=== PATIENT | male | born 1990 | race Caucasian/White ===

== ENCOUNTER 2017-10-12 01:28 | Emergency (ER) | payer SELFPAY ==
[~2017-10-12 01:28] MED LIST: NO ROUTINE MEDS; RAN150 PO
[2017-10-12 01:30] VITALS: BP 163/98
--- NOTE | 2017-10-12 01:30 | ER Report ---
History and Physical Time Seen By MD: 01:30 HPI/ROS CHIEF COMPLAINT: Custodial clearance HISTORY OF PRESENT ILLNESS: 27-year-old male brought in by police for group home clearance. Patient voices no complaints. He has slurred and appears grossly intoxicated. Patient states no significant past medical history. REVIEW OF SYSTEMS: Respiratory: No cough, no dyspnea. Cardiovascular: No chest pain, no palpitations. Gastrointestinal: No vomiting, no abdominal pain. Musculoskeletal: No back pain. Allergies: Coded Allergies: No Known Drug Allergies (Verified , 10/12/17) Home Meds Discontinued Reported Medications Ranitidine Hcl (Zantac) 150 Mg Tab, 150 MG PO BID, #60 0 Refills 11/29/09 [No Routine Meds] No Conflict Check, 0 Refills 11/28/09 Reviewed Nurses Notes: Yes Old Medical Records Reviewed: Yes Hx Substance Use Disorder: No Hx Alcohol Use: No Constitutional Vital Sign - Last 24 Hours 10/12/17 01:30 Temp 97.8 Pulse 124 Resp 17 B/P (MAP) 163/98 Pulse Ox 93 O2 Delivery Room Air Physical Exam General Appearance: The patient is alert, has no immediate need for airway protection and no current signs of toxicity. Vital signs stable, mild tachycardia, afebrile, pulse ox normal HEENT: Pupils equal and round no injection. Oropharynx without dental trauma Respiratory: Chest is non tender, lungs are clear to auscultation. No chest wall tenderness Cardiac: regular rate and rhythm Gastrointestinal: Abdomen is soft and non tender, no masses, bowel sounds normal. Musculoskeletal: Neck: Neck is supple and non tender. Extremities have full range of motion and are non tender. Skin: No rashes or lesions. DIFFERENTIAL DIAGNOSIS: After history and physical exam differential diagnosis was considered for group home clearance, polysubstance abuse, alcohol intoxication Medical Decision Making ED Course/Re-evaluation ED Course Patient was admitted to an examination room. H&P was done. The differential diagnoses was considered. On clinical examination. Patient voices no complaints. His exam is unremarkable. His vital signs are stable except for mild tachycardia for being arrested. Patient's medical cleared for group home admission. Decision to Disposition Date: Oct 12, 2017 Decision to Disposition Time: 01:40 Depart Departure Latest Vital Signs Vital Signs Date Time Temp Pulse Resp B/P (MAP) Pulse Ox O2 Delivery O2 Flow Rate FiO2 10/12/17 01:30 97.8 124 17 163/98 93 Room Air Impression: Primary Impression: Medical clearance for incarceration Additional Impression: Alcohol intoxication Condition: Improved Disposition: [facility] TO HALFWAY/CORRECTIONAL F New Scripts No Active Prescriptions or Reported Meds Patient Instructions: Alcohol Intoxication (ED) Additional Instructions: Medical cleared for group home admission Problem Qualifiers Additional Impression: Alcohol intoxication Complication of substance-induced condition: uncomplicated Qualified Codes: F10.920 - Alcohol use, unspecified with intoxication, uncomplicated NELY NORMAN DO Oct 12, 2017 01:30
== END 2017-10-12 01:46 ==
LOC: ER 01:40
DX: F10.920 Alcohol use, unspecified with intoxication, uncomplicated (principal)
CPT/HCPCS: 99281